=== PATIENT | female | born 1985 | race Caucasian/White ===

== ENCOUNTER 2020-03-27 13:30 | Emergency (ER) | payer BC, SELFPAY ==
[2020-03-27 13:53] VITALS: BP 147/93; PULSE 111; RESP 18; TEMP 37.3; O2SAT 96
--- NOTE | 2020-03-27 14:12 | USR_ITS ---
PROCEDURE INFORMATION: Exam: US Nonobstetric Pelvis; Complete Exam date and time: 03/27/2020 3:07 PM Age: 34 years old Clinical indication: Pelvic pain; Additional info: Pelvic pain; Iud TECHNIQUE: Imaging protocol: Transabdominal pelvic nonobstetric ultrasound. Complete exam. Real time ultrasound with image documentation. COMPARISON: No relevant prior studies available. FINDINGS: Uterus/cervix: Uterus measures 7.8 x 4.0 x 5.1 cm. There is an IUD in the endometrial canal in appropriate position. Right adnexa: Right ovary measures 2.6 x 2.2 x 2.2 cm with a volume of 6.7 cc. Flow difficult to assess secondary to the overlying bowel gas. Left adnexa: Left ovary measures 2.3 x 1.9 x 1.9 cm with a volume of 4.4 cc. Flow is difficult to assess secondary to the overlying bowel gas. Bowel: Images are somewhat suboptimal secondary to overlying bowel gas. Intraperitoneal space: None. Bladder: Normal. US/US pelvis lmt w transvag IMPRESSION: IUD in satisfactory position.
[2020-03-27 14:39] VITALS: RESP 18
--- NOTE | 2020-03-27 14:39 | ED_ITS ---
HPI - Female Genitourinary General: Chief complaint: Urogenital-Female Stated complaint: uterus pain Time Seen by Provider: 03/27/20 14:18 Source: patient Mode of arrival: ambulatory Limitations: no limitations History of Present Illness: HPI Narrative: Patient is a 34-year-old female who presents to ED today with a complaint of lower pelvic pain over the past 3 days. Patient tells me pain is worse when she tries to lean forward from lying down and noticed today during a bowel movement, that pain was severe. She is not having any rectal pain. No bloody stools. Bowel movements have been normal frequency and consistency. Patient is concerned because she has an IUD present that was placed 6 years ago. She is not having any vaginal bleeding, vaginal discharge, vaginal odor, dyspareunia. She has no concerns for STDs. She denies dysuria, frequency, urgency, hesitancy. LMP was 3 wks ago. MD elicited complaint: pelvic pain Pertinent past history: IUD Onset (ago): day(s) Location of symptoms: pelvis Vaginal discharge: none Vaginal bleeding: none Associated symptoms: Reports abdominal pain; Deny headache(s), nausea or vaginal discharge Patient : No Review of Systems Const: Denies: fever(s), chills, body aches, fatigue or malaise Card: Denies: chest pain Resp: Denies: dyspnea GI: Reports: abdominal pain; Denies: nausea, vomiting, diarrhea or change in bowel habits : Reports: pelvic pain; Denies: flank pain, difficulty voiding, dysuria, urinary frequency, urinary urgency, urinary hesitancy, urinary incontinence, hematuria, genital pruritis, vaginal odor, vaginal bleeding or vaginal discharge Musc: Denies: neck pain or back pain Skin/Breast: Denies: rash Neuro: Denies: headache(s) PFSH ED PFSH: Social History Current gender identity: Female Physical Exam Const: COMMON NORMALS: no acute distress, patient oriented x3, no limitations and alert NUTRITIONAL APPEARANCE: obese GI: COMMON NORMALS: Normal to inspection, nondistended, normoactive bowel sounds present, Soft to palpation, No hepatosplenomegaly present and no masses PALPATION: Yes Soft to palpation, Yes Tenderness to palpation present (GI) (across lower pelvis ) and Yes No hepatosplenomegaly present : COMMON NORMALS: Yes no CVA tenderness BLADDER/KIDNEY EXAM: Yes no CVA tenderness Back/Pelvis: COMMON NORMALS: no CVA tenderness Neuro: COMMON NORMALS: patient oriented x3 SENSORIUM/ORIENTATION: Yes alert Skin: COMMON NORMALS: no rashes or lesions noted GENERAL SKIN EXAM: no rashes or lesions noted Course Vital Signs: Vital signs: Vital Signs Temperature 99.1 F 03/27/20 13:53 Pulse Rate 111 H 03/27/20 13:53 Respiratory Rate 18 03/27/20 15:39 Blood Pressure 147/93 03/27/20 13:53 Pulse Oximetry 96 03/27/20 13:53 MDM - Female MDM Narrative: Medical decision making narrative: IUD in normal position on her ultrasound. There was no evidence for ovarian cysts. Ovarian flow was not able to be assessed due to overlying bowel gas. Symptoms do not seem consistent with an ovarian torsion. Patient's lab work normal. UA without evidence of infection. I discussed with patient at length regarding options for evaluation of her pain including proceeding with a CT abdomen/pelvis and performing a pelvic exam with swabs. Patient tells me she was mainly concerned about IUD migration and states as long as IUD is in place she feels comfortable watching and waiting at home. She feels comfortable taking OTC pain medications. I discussed strict return to ED precautions regarding worsening abdominal pain, vaginal bleeding, vaginal odor/discharge, fevers, or any other concerns she may have. Lab Data: Labs: Lab Results 03/27/20 03/27/20 03/27/20 Range/Units 14:25 14:35 14:35 WBC 9.5 (4.0-10.0) 10^3/ uL RBC 4.69 (4.1-5.3) 10^6/u L Hgb 14.9 (11.5-15.3) g/dL Hct 44.1 (37.0-47.0) % MCV 94.0 (81-99) fL MCH 31.8 (28.0-34.0) pg MCHC 33.8 (30.0-36.0) g/dL RDW 11.5 L (12.1-15.1) % Plt Count 363 (130-400) 10^3/c mm MPV 9.0 (7.4-10.4) fL Neut % (Auto) 62.3 % Lymph % (Auto) 21.6 % Richardson % (Auto) 12.3 % Eos % (Auto) 2.5 % Baso % (Auto) 0.7 % Neut # (Auto) 5.92 (1.8-7.7) 10^3/u L Lymph # (Auto) 2.1 (0.8-4.8) 10^3/u L Richardson # (Auto) 1.2 H (0.2-0.9) 10^3/u L Eos # (Auto) 0.2 (0.0-0.8) 10^3/u L Baso # (Auto) 0.1 (0.0-0.1) 10^3/u L Nucleated RBC % (a uto) 0 % Nucleated RBCs # 0.0 /100WBC Sodium 138 (136-145) mmol/L Potassium 4.3 (3.5-5.1) mmol/L Chloride 104 (98-107) mmol/L Carbon Dioxide 24 (22-29) mmol/L Anion Gap 14.3 (5-19) BUN 8 (6-20) mg/dL Creatinine 0.8 (0.5-0.9) mg/dL GFR Calculation 83.1 L (90-130) mL/min Glucose 96 (65-115) mg/dL Calculated Osmolal ity 282 L (285-295) mOsm/k g Lactic Acid (0.5-2.2) mmol/L Calcium 9.9 (8.5-10.5) mg/dL Total Bilirubin 0.4 (0.15-1.2) mg/dL AST 18 (0-32) U/L ALT 35 H (0-33) U/L Alkaline Phosphata se 53 (35-105) IU/L Total Protein 6.9 (6.6-8.7) g/dL Albumin 4.6 (3.5-5.2) g/dL Globulin 2.3 (1.3-4.6) g/dL HCG, Qual (Negative) Urine Color Yellow (Yellow) Urine Appearance Clear (CLEAR) Urine pH 5 (5-7) Ur Specific Gravit y 1.020 (1.005-1.030) Urine Protein Neg (Negative) Urine Glucose (UA) Norm (Normal) Urine Ketones Negative (Negative) Urine Blood Neg (Negative) Urine Nitrate Negative (Negative) Urine Bilirubin Neg (NEGATIVE) Urine Urobilinogen Norm (Negative) mg/dL Ur Leukocyte Evelina ase Negative (Negative) 03/27/20 03/27/20 Range/Units 14:35 14:35 WBC (4.0-10.0) 10^3/ uL RBC (4.1-5.3) 10^6/u L Hgb (11.5-15.3) g/dL Hct (37.0-47.0) % MCV (81-99) fL MCH (28.0-34.0) pg MCHC (30.0-36.0) g/dL RDW (12.1-15.1) % Plt Count (130-400) 10^3/c mm MPV (7.4-10.4) fL Neut % (Auto) % Lymph % (Auto) % Richardson % (Auto) % Eos % (Auto) % Baso % (Auto) % Neut # (Auto) (1.8-7.7) 10^3/u L Lymph # (Auto) (0.8-4.8) 10^3/u L Richardson # (Auto) (0.2-0.9) 10^3/u L Eos # (Auto) (0.0-0.8) 10^3/u L Baso # (Auto) (0.0-0.1) 10^3/u L Nucleated RBC % (a uto) % Nucleated RBCs # /100WBC Sodium (136-145) mmol/L Potassium (3.5-5.1) mmol/L Chloride (98-107) mmol/L Carbon Dioxide (22-29) mmol/L Anion Gap (5-19) BUN (6-20) mg/dL Creatinine (0.5-0.9) mg/dL GFR Calculation (90-130) mL/min Glucose (65-115) mg/dL Calculated Osmolal ity (285-295) mOsm/k g Lactic Acid 1.4 (0.5-2.2) mmol/L Calcium (8.5-10.5) mg/dL Total Bilirubin (0.15-1.2) mg/dL AST (0-32) U/L ALT (0-33) U/L Alkaline Phosphata se (35-105) IU/L Total Protein (6.6-8.7) g/dL Albumin (3.5-5.2) g/dL Globulin (1.3-4.6) g/dL HCG, Qual Negative (Negative) Urine Color (Yellow) Urine Appearance (CLEAR) Urine pH (5-7) Ur Specific Gravit y (1.005-1.030) Urine Protein (Negative) Urine Glucose (UA) (Normal) Urine Ketones (Negative) Urine Blood (Negative) Urine Nitrate (Negative) Urine Bilirubin (NEGATIVE) Urine Urobilinogen (Negative) mg/dL Ur Leukocyte Evelina ase (Negative) Imaging Data: US transvaginal : Radiologist's impression: [address] [place] [address] Ultrasound Report Signed Patient: Louann Hensley Unit #: [id number] : 1985 Age/Sex: 34 / F ADM Date: 03/27/20 Loc: ER Room/Bed: Attending Dr: Ordering Provider/Ordering MD: Evelin Franz Date of Service: 03/27/20 Procedure(s): US pelvis lmt w transvag Accession Number(s): [id number] Report Number: [id number] PROCEDURE INFORMATION: Exam: US Nonobstetric Pelvis; Complete Exam date and time: 03/27/2020 3:07 PM Age: 34 years old Clinical indication: Pelvic pain; Additional info: Pelvic pain; Iud TECHNIQUE: Imaging protocol: Transabdominal pelvic nonobstetric ultrasound. Complete exam. Real time ultrasound with image documentation. COMPARISON: No relevant prior studies available. FINDINGS: Uterus/cervix: Uterus measures 7.8 x 4.0 x 5.1 cm. There is an IUD in the endometrial canal in appropriate position. Right adnexa: Right ovary measures 2.6 x 2.2 x 2.2 cm with a volume of 6.7 cc. Flow difficult to assess secondary to the overlying bowel gas. Left adnexa: Left ovary measures 2.3 x 1.9 x 1.9 cm with a volume of 4.4 cc. Flow is difficult to assess secondary to the overlying bowel gas. Bowel: Images are somewhat suboptimal secondary to overlying bowel gas. Intraperitoneal space: None. Bladder: Normal. US/US pelvis lmt w transvag IMPRESSION: IUD in satisfactory position. Dictated By: Aurea Garza MD Signed By: Aurea Garza MD Signed Date/Time: 03/27/201543 DD/ 41 Discharge Plan Discharge Patient Disposition: Home Clinical Impression: Pelvic pain Condition: Stable Prescriptions: No Action Vyvanse 70 mg capsule 70 mg PO DAILY RF: 0 lamotrigine [Lamictal ODT] 200 mg tablet,disintegrating 300 mg PO DAILY RF: 0 lithium carbonate 600 mg capsule 600 mg PO BID RF: 0 dextroamphetamine-amphetamine [Adderall] 20 mg tablet 20 mg PO DAILY RF: 0 Latuda 40 mg tablet 40 mg PO DAILY RF: 0 clonazepam [Klonopin] 2 mg tablet 0.5 mg PO BEDTIME RF: 0 quetiapine 25 mg Tablet 25 - 100 mg PO DAILY RF: 0 Discharge Orders: Discharge Order (Routine); Ordered 03/27/20 Ordered By: Evelin Franz Patient Instructions: Pelvic Pain Activity Restrictions/Additional Instructions: As discussed please return to the emergency department for worsening pelvic pain, repetitive episodes of vomiting, diarrhea, fevers greater than 100.4, vaginal bleeding, vaginal discharge/odor, or generally feeling ill. Case management should contact you next week to set you up with an appointment for primary care. Coding Level of Care Code ED [facility] Community Liaison for Chg Fwd Exam Expanded Problem Focused
[2020-03-27 14:42] LABS: Add Urine Microscopic? NO
[2020-03-27 14:43] LABS: Basophils # 0.1 10^3/uL (0.0-0.1); Basophils % 0.7 %; Eosinophils # 0.2 10^3/uL (0.0-0.8); Eosinophils % 2.5 %; Hematocrit 44.1 % (37.0-47.0); Hemoglobin 14.9 g/dL (11.5-15.3); Lymphocytes # 2.1 10^3/uL (0.8-4.8); Lymphocytes % 21.6 %; Mean Corpuscular HGB Conc 33.8 g/dL (30.0-36.0); Mean Corpuscular Hemoglobin 31.8 pg (28.0-34.0); Monocytes # 1.2 10^3/uL (0.2-0.9); Monocytes % 12.3 %; Neutrophils # 5.92 10^3/uL (1.8-7.7); Neutrophils % 62.3 %; Nucleated Red Blood Cells % 0 %; Platelet Count 363 10^3/cmm (130-400); Red Blood Count 4.69 10^6/uL (4.1-5.3); Red Cell Distribution Width 11.5 % (12.1-15.1); White Blood Count 9.5 10^3/uL (4.0-10.0)
[2020-03-27 14:47] LABS: Bilirubin Urine Neg (NEGATIVE); Blood Urine Neg (Negative); Glucose Urine UA Norm (Normal); Ketones Urine Negative (Negative); Leukocyte Esterase Urine Negative (Negative); Nitrate Urine Negative (Negative); Protein Urine Neg (Negative); Urine Appearance Clear (CLEAR); Urine Color Yellow (Yellow); Urobilinogen Urine Norm (Negative); pH Urine 5 (5-7)
[2020-03-27 14:54] LABS: HCG, Serum Qual Negative (Negative)
[2020-03-27 14:58] LABS: Lactic Sepsis W/Reflex 1.4 mmol/L (0.5-2.2)
[2020-03-27 15:02] LABS: Alanine Aminotransferase 35 U/L (0-33); Albumin Level 4.6 g/dL (3.5-5.2); Alkaline Phosphatase 53 IU/L (35-105); Anion Gap 14.3 (5-19); Aspartate Amino Transferase 18 U/L (0-32); Blood Urea Nitrogen 8 mg/dL (6-20); Calcium 9.9 mg/dL (8.5-10.5); Carbon Dioxide 24 mmol/L (22-29); Chloride 104 mmol/L (98-107); Globulin 2.3 g/dL (1.3-4.6); Glomerular Filtration Rate 83.1 mL/min (90-130); Glucose 96 mg/dL (65-115); Osmolality Calculated 282 mOsm/kg (285-295); Potassium 4.3 mmol/L (3.5-5.1); Sodium 138 mmol/L (136-145); Total Bilirubin 0.4 mg/dL (0.15-1.2); Total Protein 6.9 g/dL (6.6-8.7)
[2020-03-27 15:39] VITALS: RESP 18
[2020-03-27 16:00] VITALS: RESP 18
--- NOTE | 2020-03-30 14:15 | DCPLANNER ---
linen manager had message to speak with patient about getting established with a primary care physician. linen manager called phone number , was no answer, and voicemail box was full and not accepting calls at this time.
== END 2020-03-27 16:25 | disposition home or self-care (01) ==
PROVIDERS: Emergency Provider Physician Assistant
DX: R10.2 Pelvic and perineal pain (principal)
CPT/HCPCS: 12345; 76830; 76857; 80053; 81003; 83605; 84703; 85025; 99281; 99283

== ENCOUNTER → 2020-04-26 14:40 | Outpatient (BNVA) | payer BC, SELFPAY | PROVIDERS: Visit Provider Psychiatry & Neurology Psychiatry | DX: F60.3 Borderline personality disorder (principal); F43.12 Post-traumatic stress disorder, chronic; F31.81 Bipolar II disorder | CPT/HCPCS: 99204 ==

== ENCOUNTER → 2020-04-29 07:44 | Outpatient (BNVA) | payer BC, SELFPAY | PROVIDERS: Visit Provider Counselor Professional | DX: Z20.828 Contact with and (suspected) exposure to other viral communicable diseases (principal) | CPT/HCPCS: 87635 ==

== ENCOUNTER → 2020-05-25 07:36 | Outpatient (BNVA) | payer BC, SELFPAY | PROVIDERS: Visit Provider Psychiatry & Neurology Psychiatry | DX: F31.81 Bipolar II disorder (principal); F43.12 Post-traumatic stress disorder, chronic; F60.3 Borderline personality disorder | CPT/HCPCS: 99213 ==

== ENCOUNTER → 2020-07-07 08:57 | Outpatient (BNVA) | payer BC, SELFPAY | PROVIDERS: Visit Provider Counselor Professional | DX: F31.81 Bipolar II disorder (principal); F43.12 Post-traumatic stress disorder, chronic | CPT/HCPCS: 90834 ==

== ENCOUNTER → 2020-07-29 08:12 | Outpatient (BNVA) | payer BC, SELFPAY | PROVIDERS: Visit Provider Counselor Professional | DX: F31.81 Bipolar II disorder (principal); F43.12 Post-traumatic stress disorder, chronic; F60.3 Borderline personality disorder | CPT/HCPCS: 90834 ==

== ENCOUNTER → 2020-08-18 09:57 | Outpatient (BNVA) | payer BC, SELFPAY | PROVIDERS: Visit Provider Counselor Professional | DX: F43.12 Post-traumatic stress disorder, chronic (principal); F31.81 Bipolar II disorder; F41.1 Generalized anxiety disorder | CPT/HCPCS: 90834 ==

== ENCOUNTER 2020-08-24 20:00 | Outpatient (CLI) | payer BC, SELFPAY | END 2020-08-24 20:01 | disposition home or self-care (01) | LOC: SLEEP 08-25 10:19 | PROVIDERS: PCP Family Medicine; Visit Provider Family Medicine | DX: G47.33 Obstructive sleep apnea (adult) (pediatric) (principal) | CPT/HCPCS: 95810 ==

== ENCOUNTER → 2020-09-17 00:01 | Outpatient (BNVA) | payer BC, SELFPAY | PROVIDERS: PCP Family Medicine; Visit Provider Family Medicine | DX: F31.81 Bipolar II disorder (principal) | CPT/HCPCS: 80053; 80178; 84443; 85025 ==

== ENCOUNTER 2020-09-21 20:00 | Outpatient (CLI) | payer BC, SELFPAY | END 2020-09-21 20:01 | disposition home or self-care (01) | LOC: SLEEP 09-22 08:39 | PROVIDERS: PCP Family Medicine; Visit Provider Family Medicine | DX: G47.33 Obstructive sleep apnea (adult) (pediatric) (principal) | CPT/HCPCS: 95811 ==

== ENCOUNTER 2021-06-10 14:42 | Outpatient (CLI) | payer BC, SELFPAY ==
[2021-06-10 16:04] LABS: Lithium 0.5 mmol/L (0.6-1.2)
[2021-06-10 16:07] LABS: Thyroid Stimulating Hormone 3.29 uIU/mL (0.27-4.20)
[2021-06-10 16:17] LABS: Glomerular Filtration Rate 115.1 mL/min (90-130)
== END 2021-06-10 14:43 | disposition home or self-care (01) ==
PROVIDERS: PCP Family Medicine; Visit Provider Psychiatry & Neurology Psychiatry
DX: F31.13 Bipolar disorder, current episode manic without psychotic features, severe (principal)
CPT/HCPCS: 36415; 80178; 82565; 84443

== ENCOUNTER 2022-01-18 06:00 | Outpatient (RCR) | payer BC, SELFPAY | END 2022-01-19 23:59 | disposition home or self-care (01) | LOC: SPT 06:00 | PROVIDERS: PCP Family Medicine; Referring Provider Family Medicine; Visit Provider Family Medicine | DX: M54.41 Lumbago with sciatica, right side (principal); G89.29 Other chronic pain; M25.561 Pain in right knee; M25.562 Pain in left knee | CPT/HCPCS: 97161 ==

== ENCOUNTER 2022-01-20 06:00 | Outpatient (RCR) | payer BC, SELFPAY | END 2022-02-19 23:59 | disposition home or self-care (01) | LOC: SPT 06:00 | PROVIDERS: PCP Family Medicine; Referring Provider Family Medicine; Visit Provider Family Medicine | DX: G89.29 Other chronic pain (principal); M54.41 Lumbago with sciatica, right side; M25.561 Pain in right knee; M25.562 Pain in left knee | CPT/HCPCS: 97110 ==

== ENCOUNTER → 2022-02-06 11:00 | Outpatient (BNVA) | payer BC, SELFPAY | PROVIDERS: PCP Family Medicine; Visit Provider Family Medicine | DX: S99.921A Unspecified injury of right foot, initial encounter (principal); X58.XXXA Exposure to other specified factors, initial encounter; M79.671 Pain in right foot | CPT/HCPCS: 73620 ==

== ENCOUNTER 2022-02-20 06:00 | Outpatient (RCR) | payer BC, SELFPAY | END 2022-03-22 23:59 | disposition home or self-care (01) | LOC: SPT 06:00 | PROVIDERS: PCP Family Medicine; Referring Provider Family Medicine; Visit Provider Family Medicine | DX: M54.41 Lumbago with sciatica, right side (principal); G89.29 Other chronic pain; M25.561 Pain in right knee; M25.562 Pain in left knee | CPT/HCPCS: 97110 ==

== ENCOUNTER 2022-03-23 06:00 | Outpatient (RCR) | payer BC, SELFPAY | END 2022-04-21 23:59 | disposition home or self-care (01) | LOC: SPT 06:00 | PROVIDERS: PCP Family Medicine; Visit Provider Family Medicine | DX: M25.561 Pain in right knee (principal); M25.562 Pain in left knee; M54.41 Lumbago with sciatica, right side; G89.29 Other chronic pain | CPT/HCPCS: 97110 ==

== ENCOUNTER 2022-05-29 08:41 | Outpatient (CLI) | payer BC, SELFPAY ==
[2022-05-29 09:40] LABS: Lithium 0.9 mmol/L (0.6-1.2)
[2022-05-29 09:44] LABS: Glomerular Filtration Rate 82.1 mL/min (90-130)
== END 2022-05-29 08:42 | disposition home or self-care (01) ==
PROVIDERS: PCP Family Medicine; Visit Provider Psychiatry & Neurology Psychiatry
DX: Z01.89 Encounter for other specified special examinations (principal)
CPT/HCPCS: 36415; 80178; 82565; 84443

== ENCOUNTER 2022-10-13 10:18 | Outpatient (CLI) | payer BC, SELFPAY ==
[2022-10-13 11:13] LABS: Lithium 0.5 mmol/L (0.6-1.2)
[2022-10-13 11:22] LABS: Glomerular Filtration Rate 81.6 mL/min (90-130); Thyroid Stimulating Hormone 3.71 uIU/mL (0.27-4.20)
== END 2022-10-13 10:19 | disposition home or self-care (01) ==
PROVIDERS: PCP Family Medicine; Visit Provider Psychiatry & Neurology Psychiatry
DX: F31.13 Bipolar disorder, current episode manic without psychotic features, severe (principal); Z79.899 Other long term (current) drug therapy
CPT/HCPCS: 36415; 80178; 82565; 84443

== ENCOUNTER 2022-10-16 14:40 | Outpatient (CLI) | payer BC, SELFPAY ==
--- NOTE | 2022-10-16 14:53 | XRR_ITS ---
PROCEDURE INFORMATION: Exam: XR Left Knee Exam date and time: 10/16/2022 3:16 PM Age: 37 years old Clinical indication: Pain; Knee; Left; Additional info: Chronic knee pain TECHNIQUE: Imaging protocol: Radiologic exam of the left knee. Views: 3 views. COMPARISON: No relevant prior studies available. FINDINGS: Bones/joints: Normal. Soft tissues: Normal. XR/XR knee LT 3V* [id number] IMPRESSION: No acute findings.
== END 2022-10-16 14:41 | disposition home or self-care (01) ==
LOC: RAD 14:44
PROVIDERS: PCP Family Medicine; Visit Provider Family Medicine
DX: M25.562 Pain in left knee (principal); G89.29 Other chronic pain
CPT/HCPCS: 73562

== ENCOUNTER → 2022-11-13 16:02 | Outpatient (BNVA) | payer BC, SELFPAY | PROVIDERS: PCP Family Medicine; Referring Provider Family Medicine; Visit Provider Student in an Organized Health Care Education/Training Program | DX: M25.562 Pain in left knee (principal); G89.29 Other chronic pain; M22.2X2 Patellofemoral disorders, left knee | CPT/HCPCS: 73560; 73565 ==

== ENCOUNTER 2023-03-09 15:09 | Outpatient (CLI) | payer BC, SELFPAY ==
--- NOTE | 2023-03-09 15:23 | XRR_ITS ---
PROCEDURE INFORMATION: Exam: XR Left Foot Exam date and time: 03/09/2023 3:33 PM Age: 37 years old Clinical indication: Pain; Foot; Left; Additional info: Left foot pain TECHNIQUE: Imaging protocol: Radiologic exam of the left foot. Views: 3 or more views. COMPARISON: No relevant prior studies available. FINDINGS: Bones/joints: No fracture or other acute abnormality. Joint spaces are normal. There is a small plantar calcaneal enthesophyte. Soft tissues: Normal. XR/XR foot LT min 3V* [id number] IMPRESSION: No acute findings.
== END 2023-03-09 15:10 | disposition home or self-care (01) ==
PROVIDERS: PCP Family Medicine; Visit Provider Registered Nurse Neonatal Intensive Care
DX: M79.672 Pain in left foot (principal)
CPT/HCPCS: 73630

== ENCOUNTER 2023-03-22 06:45 | Day surgery (SDC) | payer BC, SELFPAY ==
[2023-03-21 12:32] VITALS: BMI 35.9
[2023-03-22] VITALS (7 sets, daily range): BP systolic 102–146; BP diastolic 74–105; PULSE 82–91; RESP 14–18; TEMP 36.1–36.7; O2SAT 97–100
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
[2023-03-22] MEDS: sodium chloride 0.9% 1,000 ML 30 ML IV (07:43)
[2023-03-22 07:51] LABS: OR HCG Qualitative Urine Negative (Negative)
--- NOTE | 2023-03-22 08:31 | ANES.PREANE2 ---
Pre-Anesthetic Assessment Height/Weight: Height 1.65 m Weight 97.976 kg Temp Pulse Resp BP Pulse Ox O2 Del Method 97.7 F 82 16 146/105 99 Room Air 03/22/23 07:20 03/22/23 07:20 03/22/23 07:20 03/22/23 07:20 03/22/23 07:20 03/22/23 07:23 Preop Diagnosis: requires paragard removal and insertion Operation Date: 03/22/23 09:05 Proposed Procedures p Exam under anesthesia 81114, removal of intrauterine device 92561, Placement of new intrauterine device 71302,F43.10,Z30.9(Not Applicable) - Alex Amaral MD s Removal Of Interuterine Device(Not Applicable) - Alex Amaral MD s Placement of Intrauterine Device(Not Applicable) - Alex Amaral MD Familial anesthetic complications: None Was Beta Shannan taken within 24 hours: N/A Was Clonidine taken within 24 hours: N/A Last intake: Intake Last Liquid Date 03/21/23 Last Liquid Time 22:00 Last Solid Date 03/21/23 Last Solid Time 18:00 Social No alcohol and No tobacco Exam alert, oriented x 3, clear to auscultation bilaterally and regular rate & rhythm Airway Mallampati: Class II Dentition: full Neuropsych Anxiety and Bipolar Anesthetic Plan ASA status: 2 Anesthesia: General Risk of > 500 ml blood loss (7ml/kg in children): No Medications/Allergies Home Medications Medication Instructions Recorded Confirmed Last Taken Type lisdexamfetamine 70 mg capsule 70 mg PO DAILY 03/22/20 03/21/23 03/22/23 06:30 History (Vyvanse) lamotrigine 200 mg disintegrating 300 mg PO DAILY #45 tabs 04/26/20 03/21/23 03/21/23 Rx tablet (Lamictal ODT) lithium carbonate 600 mg capsule 600 mg PO BID #60 caps 04/26/20 03/21/23 03/21/23 Rx clonazepam 0.5 mg tablet (Klonopin) 0.5 mg PO BID PRN Anxiety 08/05/20 03/21/23 03/21/23 History quetiapine 25 mg tablet 25 - 50 mg PO .HS PRN sleep 08/05/20 03/21/23 03/21/23 History CPAP AUTO-TITRATING 5-9CM #1 ea 09/30/20 03/09/23 Unknown Rx tazarotene 0.1 % topical gel 1 applic topical DAILY #100 grams 09/13/21 03/21/23 03/17/23 Rx (Tazorac) albuterol sulfate 90 mcg/actuation 2 puff inhalation 6XD PRN 04/13/22 03/21/23 Unknown Rx aerosol inhaler (ProAir HFA) shortness of breath or wheezing #8.5 grams ketoconazole 2 % shampoo 1 applic topical ONCE #120 mL 05/11/22 03/21/23 03/21/23 Rx omega-3 fatty acids 500 mg capsule 500 mg PO DAILY 05/11/22 03/21/23 03/21/23 History dextroamphetamine-amphetamine 20 20 mg PO BID 09/12/22 03/21/23 03/21/23 History mg tablet (Adderall) gabapentin 300 mg capsule 300 mg PO BID 09/12/22 03/21/23 03/21/23 History lurasidone 120 mg tablet (Latuda) 120 mg PO DAILY 09/12/22 03/21/23 03/21/23 History Allergies Allergy/AdvReac Type Severity Reaction Status Date / Time cefaclor [From Counts [facility]] Allergy Severe hives Verified 03/22/23 07:15 hydrocodone Allergy Severe chest pain Verified 03/22/23 07:15 morphine Allergy Severe chest pain Verified 03/22/23 07:15 NSAIDS (Non-Steroidal Allergy Unknown Verified 03/22/23 07:15 Anti-Inflamma Current Medications Generic Name Dose Route Start Last Admin Trade Name Freq PRN Reason Stop Dose Admin Sodium Chloride 1,000 mls @ 30 mls/hr 03/22/23 07:15 03/22/23 07:43 Sodium Chloride 0.9% IV 03/23/23 07:14 30 mls/hr .Q24H BRUCE Administration PFSH Anesthesia Medical History (Updated 02/07/23 @ 14:16 by Alex Amaral MD) ADD (attention deficit disorder) Bipolar 2 disorder MUNIRA (generalized anxiety disorder) Surgical History History of cholecystectomy Family History (Updated 01/31/23 @ 15:09 by Brittany Cr LPN) Grandmother Diabetes maternal Heart disease maternal Hyperlipidemia maternal Thyroid condition maternal Grandfather No problems noted. Mother Heart disease Hyperlipidemia Thyroid condition Other Psychiatric illness Denies family history of Colon cancer Ovarian cancer Breast cancer Hypertension Uterine cancer Stroke Social History Smoking and tobacco status: former smoker Quit status (tobacco): has quit using tobacco Year quit tobacco: 2010 Second hand smoke exposure: No Alcohol intake: current Alcohol intake frequency: holidays/special occasions only Substance/Drug Use: former Date of last use: THC Current gender identity: Female Data Anesthesia Cardiac Studies: No Data to Display
--- NOTE | 2023-03-22 09:00 | W.PM.OPSUD ---
Surgery/Procedure H&P Update DATE OF PROCEDURE: March 22, 2023 DATE H&P PERFORMED: 03/22/23 CHANGES TO PREVIOUS DOCUMENTATION: will add possible hysteroscopy if paragard string could not be located. PREOP DIAGNOSIS: requires paragard removal and insertion PLANNED PROCEDURE: Operation Date: 03/22/23 09:05 Proposed Procedures p Exam under anesthesia 93666, removal of intrauterine device 92244, Placement of new intrauterine device 96024,F43.10,Z30.9(Not Applicable) - Alex Amaral MD s Removal Of Interuterine Device(Not Applicable) - Alex Amaral MD s Placement of Intrauterine Device(Not Applicable) - Alex Amaral MD
--- NOTE | 2023-03-22 10:01 | SUR.OPER ---
PATIENT COUNSELED ON REFUSAL TO REMOVE NOSE PIERCINGS AND THE DANGERS INVOLVED WITH THAT DECISION. PARAGUARD INTRAUTERINE COPPER CONTRACEPTIVE PLACED IN UTERUS. EXP 07/2028. LOT #[id number], [id number]
--- NOTE | 2023-03-22 10:55 | ANE.PACU2 ---
Inpatient post-anesthesia follow up: Airway intact: Yes Vital signs: Temperature 98.0 F Pulse Rate 83 Respiratory Rate 18 Blood Pressure 122/83 Pulse Oximetry 100 Oxygen Delivery Me thod Room Air Oxygen Flow Rate Fraction of Inspir ed Oxygen Hydration adequate: Yes Nausea and vomiting: No Pain level: 1 Mental status: Baseline
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
[2023-03-29 11:34] LABS: Source: Cervix
== END 2023-03-22 10:59 | disposition home or self-care (01) ==
PROVIDERS: PCP Family Medicine; Visit Provider Obstetrics & Gynecology
PROC: (CPT 58300; principal; 2023-03-22 08:55)
PROC: (CPT 58300; 2023-03-22 08:55)
PROC: 8E0UXY7 Examination of Female Reproductive System (ICD-10-PCS; CPT 57410; 2023-03-22 08:55)
DX: Z30.430 Encounter for insertion of intrauterine contraceptive device (principal); F43.10 Post-traumatic stress disorder, unspecified; Z87.891 Personal history of nicotine dependence
CPT/HCPCS: 58300; 58301; 81025; 84703; 87624; J1100; J2405; J2704; J3010; J7030

== ENCOUNTER → 2023-07-11 15:24 | Outpatient (BNVA) | payer SELFPAY | PROVIDERS: PCP Family Medicine; Visit Provider Emergency Medicine | DX: M25.571 Pain in right ankle and joints of right foot (principal); M72.2 Plantar fascial fibromatosis | CPT/HCPCS: 73610 ==

== ENCOUNTER 2023-07-27 12:28 | Outpatient (CLI) | payer BC, SELFPAY ==
--- NOTE | 2023-07-27 13:00 | MR_ITS ---
WS: [id number] MRI LEFT KNEE NONCONTRAST TECHNIQUE: Axial PD, coronal PD fat sat, coronal PD, sagittal PD, and sagittal PD fat-sat images obta ined. CLINICAL INFORMATION: left knee pain COMPARISON: None. FINDINGS: Distal quadriceps and patella tendons are intact. Hypertrophic patella. Moderate suprapatellar effusi on. 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 Subchondral edema in the patella . Medial and lateral patellar retinacula appear intact. Small amount of prepatellar fluid and soft ti ssue edema. Thin suprapatellar plica. ACL and PCL are intact. Medial and lateral collateral ligaments appear intact. Medial and lateral men iscus are normal in appearance. No acute appearing meniscal tears. Mild chondromalacia involving the medial and lateral joint compartments. Fibular head is normal in appearance. IMPRESSION: 1. Moderate suprapatellar effusion with advanced chondromalacia patella and subchondral edema. This is advanced for a patient this age. 2. ACL and PCL are intact. 3. No acute appearing meniscal tears. 4. Medial and lateral collateral ligaments appear intact. 5. Small amount of prepatellar soft tissue edema. 6. Thin suprapatellar plica. a Outbridge grading: grade IV: full-thickness cartilage loss with underlying bone reactive changes
== END 2023-07-27 12:29 | disposition home or self-care (01) ==
LOC: RAD 12:28
PROVIDERS: PCP Family Medicine; Visit Provider Physician Assistant
DX: M22.2X2 Patellofemoral disorders, left knee (principal); G89.29 Other chronic pain; M25.462 Effusion, left knee; M22.42 Chondromalacia patellae, left knee
CPT/HCPCS: 73721

== ENCOUNTER → 2023-08-14 15:32 | Outpatient (BNVA) | payer BC, SELFPAY | PROVIDERS: PCP Family Medicine; Visit Provider Family Medicine | DX: R63.1 Polydipsia (principal) | CPT/HCPCS: 80053; 81000; 83036; 84443; 85025 ==

== ENCOUNTER 2023-08-22 11:09 | Outpatient (CLI) | payer BC, SELFPAY | END 2023-08-22 11:10 | disposition home or self-care (01) | LOC: SPT 11:10 | PROVIDERS: PCP Family Medicine; Visit Provider Podiatrist Foot & Ankle Surgery | DX: Z46.89 Encounter for fitting and adjustment of other specified devices (principal); M25.571 Pain in right ankle and joints of right foot; G89.29 Other chronic pain; M25.371 Other instability, right ankle | CPT/HCPCS: 97760; L1902 ==

== ENCOUNTER 2023-08-29 09:23 | Day surgery (SDC) | payer BC, SELFPAY ==
[2023-08-29] VITALS (9 sets, daily range): BP systolic 120–146; BP diastolic 77–86; PULSE 78–90; RESP 16–18; TEMP 36.2–37.2; O2SAT 98–100; BMI 36.2
--- NOTE | 2023-08-29 10:05 | P.ANESASSM_ITS ---
Pre-Anesthetic Assessment Height/Weight: Height 1.65 m Weight 98.883 kg Temp Pulse Resp BP Pulse Ox O2 Del Method 98.9 F 78 18 136/79 100 Room Air 08/29/23 09:43 08/29/23 09:43 08/29/23 09:43 08/29/23 09:43 08/29/23 09:43 08/29/23 09:47 Operation Date: 08/29/23 10:55 Proposed Procedures p Knee Arthroscopy/ Left Knee Diagnostic and Surgical Arthroscopy with Plica Excision(Left) - Abiel Cuevas DO Familial anesthetic complications: None Was Beta Shannan taken within 24 hours: N/A Was Clonidine taken within 24 hours: N/A Last intake: Intake Last Liquid Date 08/28/23 Last Liquid Time 21:00 Last Solid Date 08/28/23 Last Solid Time 19:00 Social No alcohol and No tobacco Exam alert, oriented x 3, clear to auscultation bilaterally and regular rate & rhythm Airway Mallampati: Class II Dentition: full Pulmonary Sleep Apnea Metabolic Morbid Obesity Neuropsych Anxiety and Bipolar Anesthetic Plan ASA status: 2 Anesthesia: General Risk of > 500 ml blood loss (7ml/kg in children): No Medications/Allergies Home Medications Medication Instructions Recorded Confirmed Last Taken Type lisdexamfetamine 70 mg capsule 70 mg PO DAILY 03/22/20 08/28/23 08/28/23 History (Vyvanse) lamotrigine 200 mg disintegrating 300 mg (1.5 x 200 mg) PO DAILY #45 04/26/20 08/28/23 08/29/23 Rx tablet (Lamictal ODT) tabs lithium carbonate 600 mg capsule 600 mg PO BID #60 caps 04/26/20 08/28/23 08/29/23 Rx quetiapine 25 mg tablet 25 - 50 mg PO .HS PRN sleep 08/05/20 08/28/23 08/28/23 History CPAP AUTO-TITRATING 5-9CM #1 ea 09/30/20 08/22/23 Unknown Rx tazarotene 0.1 % topical gel 1 applic topical DAILY #100 grams 09/13/21 08/28/23 03/17/23 Rx (Tazorac) albuterol sulfate 90 mcg/actuation 2 puff inhalation 6XD PRN 04/13/22 08/28/23 Unknown Rx aerosol inhaler (ProAir HFA) shortness of breath or wheezing #8.5 grams ketoconazole 2 % shampoo 1 applic topical ONCE #120 mL 05/11/22 08/28/23 08/26/23 Rx omega-3 fatty acids 500 mg capsule 500 mg PO DAILY 05/11/22 08/28/23 08/28/23 History dextroamphetamine-amphetamine 20 20 mg PO BID 09/12/22 08/28/23 08/28/23 History mg tablet (Adderall) lurasidone 120 mg tablet (Latuda) 120 mg PO DAILY 09/12/22 08/28/23 08/27/23 History Thumb Spica Brace #1 ea 08/07/23 08/22/23 Unknown Rx CPAP 5-9 cm with mask and supplies #1 ea 08/14/23 08/22/23 Unknown Rx liraglutide 0.6 mg/0.1 mL (18 mg/3 0.6 mg (0.1 mL) SUBCUT DAILY #6 mL 08/15/23 08/28/23 08/27/23 Rx mL) subcutaneous pen injector (Victoza 2-Zackary) ASO to right #1 ea 08/22/23 08/22/23 Unknown Rx Allergies Allergy/AdvReac Type Severity Reaction Status Date / Time cefaclor [From [facility]] Allergy Severe hives Verified 08/14/23 14:58 hydrocodone Allergy Severe chest pain Verified 08/14/23 14:58 morphine Allergy Severe chest pain Verified 08/14/23 14:58 NSAIDS (Non-Steroidal Allergy Unknown Verified 08/14/23 14:58 Anti-Inflamma REPLACED BY [facility] Anesthesia Medical History Bipolar 2 disorder ADD (attention deficit disorder) MUNIRA (generalized anxiety disorder) Surgical History History of cholecystectomy Family History Grandmother Diabetes maternal Heart disease maternal Hyperlipidemia maternal Thyroid disease maternal Grandfather No problems noted. Mother Heart disease Hyperlipidemia Thyroid disease Other Psychiatric illness Denies family history of Colon cancer Ovarian cancer Breast cancer Hypertension Uterine cancer Stroke Social History Smoking and tobacco/nicotine status: former use of tobacco/nicotine Quit status (tobacco/nicotine): has quit using Year quit tobacco: 2010 Second hand smoke exposure: No Alcohol intake: current Alcohol intake frequency: holidays/special occasions only Substance/Drug Use: former Date of last use: THC Current gender identity: Female Data Anesthesia Cardiac Studies: No Data to Display
[2023-08-29] MEDS: acetaminophen 1,000 MG/100 ML PIGGYBACK 400 MG IV (10:21)
[2023-08-29] MEDS: sodium chloride 0.9% 1,000 ML 30 ML IV (10:23)
--- NOTE | 2023-08-29 10:32 | W.PM.OPSUD ---
Surgery/Procedure H&P Update DATE OF PROCEDURE: August 29, 2023 DATE H&P PERFORMED: 08/22/23 H&P UPDATE INFORMATION: I have reviewed H&P completed within last 30 days, I have examined patient prior to procedure and No changes to prior documentation PREOP DIAGNOSIS: Left knee medial plica PRIMARY INDICATION FOR PROCEDURE: Left knee medial plica PLANNED PROCEDURE: Operation Date: 08/29/23 10:55 Proposed Procedures p Knee Arthroscopy/ Left Knee Diagnostic and Surgical Arthroscopy with Plica Excision(Left) - Abiel Cuevas DO
[2023-08-29] MEDS: clindamycin 600 MG/50 ML PREMIX IV (10:45)
[2023-08-29] MEDS: lidocaine-epi 2% PF 1:200,000 20 mL SDV 40 ML XX (11:15)
--- NOTE | 2023-08-29 12:00 | P.OP_ITS ---
Operative Report Date of procedure: August 29, 2023 Surgeon: Abiel Cuevas DO [employer] Licensee: Akhil Cuevas PA-C: PA was necessary for assistance in this case with leg positioning, assistance with instrumentation, wound closure and dressing application. 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 Patient has failed conservative treatment who has been worked up for Left??knee?pain in the outpa tient setting. MRI findings consistent with plica and patellofemoral chondromalacia. talked in the office about treatment options patient would like to proceed with a Left?knee?diagnostic and surgical arthroscopy with plica excision possible chondroplasty patellofemoral.? Patient understand the ins and outs of the procedure the risk benefits complication alternatives to treatment options.? Understanding risk of surgery they agree to proceed with surgical intervention.? Patient understand this may not provide patient with complete symptomatic relief of? pain as patient does have some underlying arthritis.? Understanding this and patient agree to proceed with surgical intervention all questions answered. Procedure: Patient seen and evaluated in the preoperative holding area.? Consent was reviewed and signed with patient.? Correct extremity was then marked.? Patient seen evaluated Anesthesia Department once cleared for surgery patient was taken back to the operative suite.? Patient was transported onto the OR table in supine position.? All bony prominences well-padded patient was appropriate secured to the bed.? Once appropriately anesthetized a nonsterile tourniquet was applied to the Left thigh.? The Left lower extremity was then prepped and draped in standard orthopedic fashion.? Final timeout performed.? Patient received appropriate preoperative antibiotics. Patient received local anesthetic of lidocaine with epinephrine into the joint as well as around the portal sites.? No tourniquet was inflated A standard 2 portal vertical incision diagnostic and surgical arthroscopy of the Left?knee?was performed in standard fashion.? Small stab incision made in the inferolateral portal introduced trocar and arthroscope into the suprapatellar pouch.? Suprapatellar pouch was subsequently visualized and found to have significant synovitis but no loose bodies.? Patient had noticeable significant inflamed infrapatellar fat pad and thickening hypertrophic within the p atellofemoral compartment.? ?The medial gutter was free of loose bodies I then introduced the arthroscope into the medial compartment.? Within the medial compartment I then established my inferior medial working portal utilizing spinal needle outside in technique.? Once established I then visualized our articular cartilage of the medial compartment with a valgus stress.? Patient was found to have grade 1 chondromalacia throughout the medial compartment.? Next I inspected the meniscus.? With an arthroscopic probe was utilized to visual? all aspects of the meniscus.? Meniscal root was found to be intact.? Rest of the meniscus was found to be intact no evidence of chondral wear. I performed a synovectomy of the medial compartment. This completed medial compartment work. Next a introduced the arthroscope to the intercondylar notch.? PCL and ACL were intact. patient had significant thickening of the infrapatellar fat pad spanning into the medial and lateral compartments.? I then performed an extensive synovectomy with the arthroscopic shaver of the patellofemoral medial and lateral compartments as well as the intercondylar notch. Next I introduced the arthroscope into the lateral compartment the lateral compartment was found to have grade1- 2 chondromalacia.? With the knee in extension there was not area over the lateral femoral condyle ridge communicating into the lateral joint as well as into the patellofemoral joint space with a grade 4 OCD lesion with exposed subchondral bone this measured roughly 1.75 cm x 1.5 cm lateral meniscus was found to be intact.? The root was intact.? Given the grade 1-2 chondromalacia there is no unstable cartilage pieces to perform chondroplasty.? This completed my work of the lateral compartment and then performed a synovectomy of the lateral compartment.? Next of the arthroscope was placed into the lateral gutter and this was free of loose bodies.? Finally I reintroduced the arthroscope into the patellofemoral compartment.? The patellofemoral was found to have grade 2-3chondromalacia of the patellofemoral compartment.? At this point I utilized arthroscopic shaver as well as thermal wand to perform extensive synovectomy of the patellofemoral compartment. At this point in time I then subsequently utilized arthroscopic shaver to perform a chondroplasty of the patellofemoral space as well as the OCD lesion on the lateral femoral condyle taking this all to stable chondral tissue and removing all loose unstable pieces. Once I had this completely debrided I took appropriate measurements which measured two 1.75 cm x 1.5 cm. As result decision was made to proceed with a microfracturing of the space. I subsequently loaded a 0.62 K wire with a small power and subsequently percutaneously made multiple spaced microfracturing drill holes within the lesion to stimulate healing. I then thoroughly irrigated the the knee. This completed my work of the patellofemoral space.? I then switch my portal sites to the medial working portal.? Completed the rest of my synovectomy and the rest of my examination arthroscopy was normal. All fluid was suctioned from the joint.? ?All instruments were withdrawn.? Portal sites were closed with interrupted nylon suture.? portal sites were then covered with with Xeroform 4 x 4's ABD Curlex and Dom wrap.? Patient was then subsequently awakened from anesthesia and taken to PACU in stable condition. Disposition: Patient taken to PACU in stable condition recovering well.? Will receive appropriate discharge structure as well as pain medication postoperatively as well as? DVT prophylaxis.we will have patient follow-up with us in the office in 2 weeks.? Pt will partial weightbearing 30 to 50% to the Left lower extremity and utilize crutches as tolerated patient understands and agrees with current plan.? All questions answered.
--- NOTE | 2023-08-29 12:04 | P.BOP_ITS ---
Date of Procedure: [August 29, 2023] Surgeon: [Dr. Cuevas DO] Supervisor [employer](s): [Akhil Cuevas PA-C] Procedure(s) performed: [Left knee diagnostic and arthroscopic surgery Chondroplasty, Medial plica excision, extensive Synovectomy, Microfracture of lateral femoral condyle] Findings of the procedure(s): [Left knee lateral femoral condyle chondromalacia, medial plica, OCD lesion on lateral femoral condyle] Estimated blood loss: [5 ml] Specimen(s) removed: [n/a] Post-operative diagnosis: [Left knee lateral femoral condyle chondromalacia, medial plica, OCD lesion on lateral femoral condyle]
--- NOTE | 2023-08-29 12:15 | PM.PACU ---
PACU note Narrative: Pt is 38 y/o Female that just underwent Left knee surgical diagnostic arthroscopy. Pt transferred to PACU in stable condition. Dressing is dry. pt is awake and alert. pt can wiggle toes and plantarflex and dorsiflex foot. pt able to perform straight leg raise, Femoral nerve intact. Distal pulses are palpable toes are warm and well-perfused. Cap refill is normal and under 2 seconds. Sensation to foot is intact. Pain is controlled. Exam: awake Disposition: discharged
[2023-08-29] MEDS: TRAMadol 50 mg Tablet PO (12:57)
--- NOTE | 2023-08-29 13:15 | ANE.PACU2 ---
Inpatient post-anesthesia follow up: Airway intact: Yes Vital signs: Temperature 97.1 F Pulse Rate 80 Respiratory Rate 16 Blood Pressure 143/79 Pulse Oximetry 98 Oxygen Delivery Me thod Room Air Oxygen Flow Rate 10 Fraction of Inspir ed Oxygen Hydration adequate: Yes Nausea and vomiting: No Pain level: 1 Mental status: Baseline
[2023-08-30 08:05] LABS: OR HCG Qualitative Urine Negative (Negative)
== END 2023-08-29 13:18 | disposition home or self-care (01) ==
PROVIDERS: Anesthesiology; PCP Family Medicine; Visit Provider Student in an Organized Health Care Education/Training Program
PROC: (CPT 29870; principal; 2023-08-29 10:50)
DX: M67.52 Plica syndrome, left knee (principal); M65.88 Other synovitis and tenosynovitis, other site; M22.42 Chondromalacia patellae, left knee; G47.30 Sleep apnea, unspecified; E66.01 Morbid (severe) obesity due to excess calories; Z68.36 Body mass index [BMI] 36.0-36.9, adult; F31.9 Bipolar disorder, unspecified; Z87.891 Personal history of nicotine dependence; F98.8 Other specified behavioral and emotional disorders with onset usually occurring in childhood and adolescence; F41.1 Generalized anxiety disorder
CPT/HCPCS: 29876; 29879; 81025; 84703; C1713; J0131; J1100; J2405; J2704; J3010; J3490; J7030

== ENCOUNTER 2023-09-04 13:58 | Outpatient (CLI) | payer BC, SELFPAY ==
[2023-09-04 14:40] LABS: Lithium 0.6 mmol/L (0.6-1.2)
[2023-09-04 14:42] LABS: Glomerular Filtration Rate 94.7 mL/min (90-130); Thyroid Stimulating Hormone 1.95 uIU/mL (0.27-4.20)
== END 2023-09-04 13:59 | disposition home or self-care (01) ==
LOC: LAB 13:59
PROVIDERS: PCP Family Medicine; Visit Provider Psychiatry & Neurology Psychiatry
DX: Z01.89 Encounter for other specified special examinations (principal)
CPT/HCPCS: 36415; 80178; 82565; 84443

== ENCOUNTER 2023-09-04 14:47 | Outpatient (CLI) | payer BC, SELFPAY | END 2023-09-04 14:48 | disposition home or self-care (01) | LOC: SPT 14:48 | PROVIDERS: PCP Family Medicine; Visit Provider Podiatrist Foot & Ankle Surgery | DX: Z46.89 Encounter for fitting and adjustment of other specified devices (principal); M72.2 Plantar fascial fibromatosis | CPT/HCPCS: 97760 ==

== ENCOUNTER 2023-10-05 09:30 | Outpatient (RCR) | payer BC, SELFPAY | END 2023-10-21 23:59 | disposition home or self-care (01) | LOC: SPT 09:30 | PROVIDERS: PCP Family Medicine; Visit Provider Student in an Organized Health Care Education/Training Program | DX: Z98.890 Other specified postprocedural states (principal) | CPT/HCPCS: 97110; 97162 ==

== ENCOUNTER 2023-10-05 09:34 | Outpatient (RCR) | payer BC, SELFPAY | END 2023-10-21 23:59 | disposition home or self-care (01) | LOC: SPT 09:34 | PROVIDERS: PCP Family Medicine; Visit Provider Podiatrist Foot & Ankle Surgery | DX: S93.401D Sprain of unspecified ligament of right ankle, subsequent encounter (principal); X58.XXXD Exposure to other specified factors, subsequent encounter | CPT/HCPCS: 97110; 97161 ==

== ENCOUNTER 2023-10-22 06:00 | Outpatient (RCR) | payer BC, SELFPAY | END 2023-11-20 23:59 | disposition home or self-care (01) | LOC: SPT 06:00 | PROVIDERS: PCP Family Medicine; Visit Provider Student in an Organized Health Care Education/Training Program | DX: Z98.890 Other specified postprocedural states (principal) | CPT/HCPCS: 97110; 97112 ==

== ENCOUNTER 2023-11-21 06:00 | Outpatient (RCR) | payer BC, SELFPAY | END 2023-11-26 23:59 | disposition home or self-care (01) | LOC: SPT 06:00 | PROVIDERS: PCP Family Medicine; Visit Provider Student in an Organized Health Care Education/Training Program | DX: Z98.890 Other specified postprocedural states (principal) | CPT/HCPCS: 97110 ==

== ENCOUNTER → 2024-01-29 12:19 | Outpatient (BNVA) | payer BC, SELFPAY | PROVIDERS: PCP Family Medicine; Visit Provider Registered Nurse Neonatal Intensive Care | DX: R39.9 Unspecified symptoms and signs involving the genitourinary system (principal) | CPT/HCPCS: 81000 ==

== ENCOUNTER 2024-08-12 15:16 | Outpatient (CLI) | payer BC, SELFPAY ==
[2024-08-12 16:09] LABS: Basophils # 0.1 10^3/uL (0.0-0.1); Basophils % 0.7 %; Eosinophils # 0.2 10^3/uL (0.0-0.8); Hematocrit 42.1 % (36-47); Lymphocytes # 2.3 10^3/uL (0.8-4.8); Lymphocytes % 28.4 %; Mean Corpuscular HGB Conc 33.7 g/dL (30-55); Mean Corpuscular Hemoglobin 31.9 pg (27-33); Mean Corpuscular Volume 94.6 fl (85-98); Mean Platelet Volume 9.2 fL (7.4-10.4); Monocytes # 1.1 10^3/uL (0.2-0.9); Monocytes % 13.9 %; Neutrophils # 4.43 10^3/uL (1.8-7.7); Neutrophils % 54.5 %; Nucleated Red Blood Cells % 0 %; Platelet Count 372 10^3/cmm (157-399); Red Blood Count 4.45 10^6/uL (3.85-5.65); White Blood Count 8.13 10^3/uL (3.29-11.43)
[2024-08-12 16:50] LABS: Hepatitis A Antibody IgM Non-Reactive (Nonreactive); Hepatitis B Core AB, Total Non-Reactive (Nonreactive); Hepatitis B Surface Antigen Non-Reactive (Nonreactive); Hepatitis C Virus Antibody Non-Reactive (Nonreactive)
[2024-08-12 16:56] LABS: Alanine Aminotransferase 35 U/L (0-33); Albumin Level 4.5 g/dL (3.5-5.2); Alkaline Phosphatase 47 U/L (35-105); Anion Gap 15.2 (5-19); Aspartate Amino Transferase 17 U/L (0-32); Blood Urea Nitrogen 12 mg/dL (6-20); Calcium 9.7 mg/dL (8.5-10.5); Carbon Dioxide 22 mmol/L (22-29); Chloride 106 mmol/L (98-107); Globulin 2.7 g/dL (1.3-4.6); Glomerular Filtration Rate 113.1 mL/min (90-130); Glucose 93 mg/dL (65-115); Osmolality Calculated 287 mOsm/kg (285-295); Potassium 4.2 mmol/L (3.5-5.1); Sodium 139 mmol/L (136-145); Total Bilirubin 0.2 mg/dL (0.15-1.2); Total Protein 7.2 g/dL (6.6-8.7)
[2024-08-12 17:02] LABS: Thyroid Stimulating Hormone 4.05 uIU/mL (0.27-4.20)
[2024-08-12 21:27] LABS: Lithium 0.3 mmol/L (0.6-1.2)
[2024-08-12 22:12] LABS: Hepatitis B Surface AB > 1000.0 (11.5-1000)
== END 2024-08-12 15:17 | disposition home or self-care (01) ==
PROVIDERS: Nurse Practitioner Family; PCP Family Medicine Adult Medicine; Visit Provider Family Medicine Adult Medicine
DX: F31.13 Bipolar disorder, current episode manic without psychotic features, severe (principal)
CPT/HCPCS: 80048; 80076; 80178; 84443; 85025; 86480; 86705; 86706; 86709; 86803; 87340

== ENCOUNTER 2024-08-27 10:26 | Outpatient (CLI) | payer BC, SELFPAY ==
[2024-08-27 11:18] LABS: Glomerular Filtration Rate 80.7 mL/min (90-130)
[2024-08-27 11:23] LABS: Lithium 0.4 mmol/L (0.6-1.2)
== END 2024-08-27 10:27 | disposition home or self-care (01) ==
LOC: LAB 10:32
PROVIDERS: PCP Pediatrics; Visit Provider Psychiatry & Neurology Psychiatry
DX: F31.13 Bipolar disorder, current episode manic without psychotic features, severe (principal)
CPT/HCPCS: 36415; 80178; 82565

== ENCOUNTER 2025-03-27 12:58 | Outpatient (CLI) | payer BC, SELFPAY ==
[2025-03-27 13:44] LABS: Lithium 0.6 mmol/L (0.6-1.2)
[2025-03-27 13:45] LABS: Thyroid Stimulating Hormone 2.66 uIU/mL (0.27-4.20)
== END 2025-03-27 12:59 | disposition home or self-care (01) ==
LOC: LAB 13:00
PROVIDERS: PCP Family Medicine; Visit Provider Psychiatry & Neurology Psychiatry
DX: F31.13 Bipolar disorder, current episode manic without psychotic features, severe (principal)
CPT/HCPCS: 36415; 80178; 82565; 84443